=== PATIENT | male | born 1940 | race Caucasian/White ===

== ENCOUNTER 2021-02-12 04:30 | Inpatient (IN) | payer MEDICARE, BC ==
[~2021-02-12] VITALS: Ht 182.9 cm; Wt 68.0 kg
[2021-02-12] MEDS ORDERED: CHOL100040 PO (11:05)
[2021-02-12] MEDS ORDERED: ATOR10TA PO (11:05)
[2021-02-12] MEDS ORDERED: DONE10TA44 PO (11:05)
[2021-02-12] MEDS ORDERED: ESCI10TA PO (11:05)
[2021-02-12] MEDS ORDERED: SULF1TAB48 PO (11:05)
[2021-02-12] MEDS ORDERED: MEMA5TAB PO (11:05)
[2021-02-12] MEDS ORDERED: clonazePAM 0.5 MG TABLET PO SCH (11:30)
[2021-02-12] MEDS ORDERED: MAG HYDROX/AL HYDROX/SIMETH 30 ML UDC PO PRN (11:30)
[2021-02-12] MEDS ORDERED: ACETAMINOPHEN 325 MG TABLET PO PRN (11:30)
[2021-02-12] MEDS ORDERED: MAGNESIUM HYDROXIDE 30 ML UDC PO PRN (11:30)
[2021-02-12] MEDS ORDERED: BLOOD SUGAR DIAGNOSTIC 1 EACH STRIP IN ONE (11:30)
--- NOTE | 2021-02-12 11:30 | NUR ---
GPS/RN RECEIVED PT ON 5149 FOR GD FROM ER OF [facility]. ORIGINALLY FROM [facility]. ADMITTING ORDERS FROM DR BENNETT RECEIVED AND CARRIED OUT. ON FACE TO FACE ASSESSMENT NO SI OR HI VERBALIZED. PT'S NOTIFIED OF ADMISSION. PT IS AGGRESSIVE, REFUSED TO SIGN ADMITTING PAPERWORK, UNCOOPERATIVE, REFUSED TO PROVIDE ANY MEDICAL HX, TO ASSESS SKIN AND TO LET NURSE TO MAKE PICTURES.
[2021-02-12] MEDS ORDERED: QUETIAPINE FUMARATE 25 MG TABLET PO SCH ×2 (12:30→17:00)
--- NOTE | 2021-02-12 12:35 | NUR ---
GPS/RN NATHAN BRUSHER AND SHEARER MADE AWARE OF ADMISSION
[2021-02-12 13:30] VITALS: BP 130/74
--- NOTE | 2021-02-12 13:59 | NUR ---
GPS RN NOTE: DR ORELLANA NOTIFIED OF ADMISSION AND TO RECON HOME MEDS. PATIENT IN THE ROOM UNCOOPERATIVE REFUSED MRSA, REFUSED VSS, REFUSED SKIN ASSESSMENT WILL INDORSE TO INCOMING SHIFT NURSE FOR CONTINUATION OF CARE.
[2021-02-12] MEDS: QUETIAPINE FUMARATE 25 MG TABLET PO SCH ×2 (14:18→16:30)
[2021-02-12] MEDS: ESCITALOPRAM OXALATE (10 MG) 10 MG TABLET PO SCH (14:18)
[2021-02-12 16:00] VITALS: BP 136/83
--- NOTE | 2021-02-12 18:23 | NUR ---
GPS RN NOTE: PER PHARMACY DR ORELLANA NEW EKG ORDER .
[2021-02-12] MEDS: ATORVASTATIN 10 MG TABLET PO SCH (18:30)
[2021-02-12 20:21] VITALS: BP 131/52
[2021-02-12] MEDS: DONEPEZIL 5 MG TABLET PO SCH (21:23)
[2021-02-12] MEDS: TEMAZEPAM 7.5 MG CAPSULE PO PRN (21:29)
--- NOTE | 2021-02-12 21:30 | NUR ---
GPS RN NOTES: RESTORIL 7.5MG/1CAP GIVEN PO PRN ORDERED AT 2130. WILL CONTINUE TO MONITOR.
--- NOTE | 2021-02-13 04:32 | NUR ---
GPS RN NOTES: EPIC/NATHAN INFORMED OF PATIENT ABNORMAL EKG RESULT
[2021-02-13 08:00] VITALS: BP 128/68
[2021-02-13] MEDS: MEMANTINE HCL 5 MG TABLET PO SCH ×3 (08:41→17:00)
[2021-02-13] MEDS: SULFAMETH/TRIMETH 800/160 MG 1 UDTAB TABLET PO SCH ×3 (08:41→17:00)
[2021-02-13] MEDS: ESCITALOPRAM OXALATE (10 MG) 10 MG TABLET PO SCH ×2 (08:41→09:00)
[2021-02-13] MEDS: QUETIAPINE FUMARATE 25 MG TABLET PO SCH ×3 (08:41→17:00)
[2021-02-13] MEDS: CHOLECALCIFEROL 1,000 UNIT TABLET (VIT D3) PO SCH ×2 (08:41→09:00)
[2021-02-13 08:53] LABS: CHOLESTEROL 153 mg/dL (<200); HDL CHOLESTEROL 67 mg/dL (40-60); LDL 84 mg/dL (0-99); TRIGLYCERIDES 52 mg/dL (30-150)
[2021-02-13 08:56] LABS: BILIRUBIN,TOTAL 0.9 mg/dL (0.2-1.0); CALCIUM, SERUM 8.7 mg/dL (8.5-10.1); CREATININE 1.1 mg/dL (0.6-1.3); POTASSIUM 3.7 mmol/L (3.5-5.1); TOTAL PROTEIN, SERUM 7.5 g/dL (6.4-8.2)
--- NOTE | 2021-02-13 11:55 | NUR ---
GPS/RN PT REFUSED AM MEDS, OFFERED X3. PT REFUSED MEDS FR0M ZAKIA RN WELL. PT REFUSED PT EVALUATION TODAY. PT IS VERBALLY AGGRESSIVE AND NOT REDIRECTABLE , REFUSED CARE FROM BRISEIDA CURTIS AND TRY TO THROW WATER PITCHER TOWARD HER. DR BENNETT IS IN THE UNIT AND MADE AWARE OF PT'S NOT COMPLIANCE.
[2021-02-13] MEDS: ATORVASTATIN 10 MG TABLET PO SCH (18:00)
[2021-02-13] MEDS: DONEPEZIL 5 MG TABLET PO SCH (22:00)
--- NOTE | 2021-02-13 22:07 | NUR ---
GPS RN NOTES: PATIENT REFUSED 22:00 ARICEPT 10MG PO ORDERED. PATIENT IS AGITATED AND AGGRESSIVE, YELLING AT STAFF "GET OUT OF MY ROOM AND DON'T COME BACK", REFUSING REDIRECTION. WILL CONTINUE TO MONITOR FOR SAFETY, MOOD AND BEHAVIOR.
--- NOTE | 2021-02-14 06:05 | NUR ---
GPS RN NOTES: PATIENT REFUSED WEEKLY SKIN ASSESSMENT.
[2021-02-14 08:00] VITALS: BP 113/77
[2021-02-14] MEDS: MEMANTINE HCL 5 MG TABLET PO SCH ×2 (08:05→17:02)
[2021-02-14] MEDS: CHOLECALCIFEROL 1,000 UNIT TABLET (VIT D3) PO SCH (08:05)
[2021-02-14] MEDS: SULFAMETH/TRIMETH 800/160 MG 1 UDTAB TABLET PO SCH ×2 (08:05→17:02)
[2021-02-14] MEDS: ESCITALOPRAM OXALATE (10 MG) 10 MG TABLET PO SCH (08:05)
[2021-02-14] MEDS: QUETIAPINE FUMARATE 25 MG TABLET PO SCH ×3 (08:05→20:18)
--- NOTE | 2021-02-14 08:06 | NUR ---
RN NOTE: MEDICATION REFUSAL PT REFUSED ALL AM MEDICATIONS. ATTEMPTED TO EDUCATE PT RE IMPORTANCE OF MEDICATION COMPLIANCE. PT CONT'D TO REFUSE X 3. PT IS EASILY AGITATED, IRRITABLE AND ANGERED. YELLING CUSS WORDS AT STAFF. UNABLE TO BE REDIRECTED.
[2021-02-14] MEDS ORDERED: OLANZAPINE 10 MG VIAL IM STA (08:25)
[2021-02-14] MEDS ORDERED: LORAZEPAM INJ 2 MG/ML VIAL IM STA (08:25)
--- NOTE | 2021-02-14 08:40 | NUR ---
RN NOTE: EMERGENCY IM PT ATTEMPTING TO HIT STAFF. SWUNG AT PUBLICATION DESIGNER. VERBALLY AGGRESSIVE AND ABUSIVE. CURSING AND YELLING IN HALLWAY. UNABLE TO BE REDIRECTED AND REORIENTED. PT IS CONFUSED AND DELUSIONAL. "I KNOW THE PRESIDENT OF [facility] AND I'M GOING TO GET YOU FIRED". OFFERED PO MEDICATION. PT REFUSED. CALL TO DR. BENNETT AND TELEPHONE ORDER OF ZYPREXA 5MG AND ATIVAN 1MG IM ADMINISTERED TO RIGHT DELTOID
[2021-02-14 16:00] VITALS: BP 120/60
[2021-02-14] MEDS: ATORVASTATIN 10 MG TABLET PO SCH (17:03)
[2021-02-14 20:00] VITALS: BP 116/63
[2021-02-14] MEDS: DONEPEZIL 5 MG TABLET PO SCH (21:46)
[2021-02-14] MEDS: TEMAZEPAM 7.5 MG CAPSULE PO PRN (21:46)
--- NOTE | 2021-02-15 07:03 | NUR ---
GPS RN CLOSING NOTES: PATIENT IS SLEEPING COMFORTABLY IN BED. PATIENT HAS NO S/S OF DISTRESS. RESPIRATION EVEN AND UNLABORED WITH EQUAL RISE AND FALL OF THE CHEST, ON ROOM AIR. BED IN LOWEST POSITION AND LOCKED, SIDE RAILS UP X2. BED ALARM ON FOR SAFETY. ALL PATIENT CARE NEEDS HAVE BEEN MET ANTICIPATED. WILL CONTINUE TO MONITOR AND ENDORSE TO AM SHIFT.
[2021-02-15 08:00] VITALS: BP 103/63
[2021-02-15] MEDS: SULFAMETH/TRIMETH 800/160 MG 1 UDTAB TABLET PO SCH ×2 (08:55→17:09)
[2021-02-15] MEDS: ESCITALOPRAM OXALATE (10 MG) 10 MG TABLET PO SCH (08:55)
[2021-02-15] MEDS: CHOLECALCIFEROL 1,000 UNIT TABLET (VIT D3) PO SCH (08:55)
[2021-02-15] MEDS: MEMANTINE HCL 5 MG TABLET PO SCH ×2 (08:55→17:11)
[2021-02-15] MEDS: QUETIAPINE FUMARATE 25 MG TABLET PO SCH ×3 (08:55→17:11)
[2021-02-15 16:00] VITALS: BP 101/64
[2021-02-15] MEDS: ENSURE ENLIVE 237 ML LIQUID (VANILLA) PO SCH (17:06)
[2021-02-15] MEDS: ATORVASTATIN 10 MG TABLET PO SCH (17:11)
--- NOTE | 2021-02-15 17:40 | NUR ---
GPS RN CLOSING NOTES: PATIENT IS RESTING COMFORTABLY IN WESTON-CHAIR. PATIENT HAS NO S/S OF DISTRESS. PT IS MEDICATION COMPLIANT (CRUSHED). RESPIRATIONS EVEN AND UNLABORED WITH EQUAL RISE AND FALL OF THE CHEST, ON ROOM AIR. ALL PATIENT CARE NEEDS HAVE BEEN MET ANTICIPATED. WILL CONTINUE TO MONITOR AND ENDORSE TO AM SHIFT.
[2021-02-15 20:00] VITALS: BP 123/56
--- NOTE | 2021-02-15 20:00 | NUR ---
RN NOTES: PT. REFUSED SKIN ASSESSMENT AND PICTURS TAKEN , ENCOURAGED X3 , RISKS AND BENEFITS EXPLINED PT. STRONGLY REFUSED , BUT PT. VISUALLY NOTED WITH SKIN DISCOLORATIONS ON BOTH ARMS AND PT. BEHAVIOR VERY UNCOOPERTIVE ,, ANXIOUS , EASILY AGITATED .
[2021-02-15] MEDS: DONEPEZIL 5 MG TABLET PO SCH (21:15)
[2021-02-16 08:00] VITALS: BP 104/58
[2021-02-16] MEDS: SULFAMETH/TRIMETH 800/160 MG 1 UDTAB TABLET PO SCH ×2 (08:52→17:20)
[2021-02-16] MEDS: MEMANTINE HCL 5 MG TABLET PO SCH ×2 (08:52→17:20)
[2021-02-16] MEDS: QUETIAPINE FUMARATE 25 MG TABLET PO SCH ×3 (08:52→17:20)
[2021-02-16] MEDS: ESCITALOPRAM OXALATE (10 MG) 10 MG TABLET PO SCH (08:52)
[2021-02-16] MEDS: CHOLECALCIFEROL 1,000 UNIT TABLET (VIT D3) PO SCH (08:52)
[2021-02-16] MEDS: ENSURE ENLIVE 237 ML LIQUID (VANILLA) PO SCH ×2 (08:52→17:21)
[2021-02-16] MEDS: Z GUARD REMEDY 2 OZ OINT TP SCH (08:53)
--- NOTE | 2021-02-16 14:47 | NUR ---
Initial Discharge Plan Pt will be D/C to his prior living arrangement, [facility] ([address] [place] [address]; ) or SW will seek alternative placement. SW will work with the pt and the MD regarding appropriate D/C planning. SW will form a safe and proper D/C plan.
--- NOTE | 2021-02-16 14:47 | NUR ---
D/C planning SW contacted [facility] ([address] [place] [address]; ) and spoke to Will. COURTNEY was notified that the pt is able to return to the facility at the time of D/C. COURTNEY was instructed to contact the facility prior to D/C to arrange transportation provided by the facility. COURTNEY was provided with fax number to send clinicals to the facility (fax: [phone]).
--- NOTE | 2021-02-16 14:49 | NUR ---
Point of Contact SW contacted pt's , Elina Moraes, /work: [phone]. SW called [phone] and the number was disconnected. SW called [phone] was unable to leave a voicemail but sent a text notification for callback. SW will continue to F/U to contact pt's /family.
[2021-02-16 16:00] VITALS: BP 98/60
[2021-02-16] MEDS: ATORVASTATIN 10 MG TABLET PO SCH (17:24)
[2021-02-16 20:00] VITALS: BP 101/52
[2021-02-16] MEDS: DONEPEZIL 5 MG TABLET PO SCH (22:22)
--- NOTE | 2021-02-17 06:33 | NUR ---
RN CLOSING NOTE PATIENT SLEPT THROUGH THE NIGHT. PT WAS MED COMPLIANT, NO AGGRESSIVE BEHAVIOR OBSERVED DURING CARE, NO ATTEMPTS TO GET OUT OF BED. PT STABLE ON RA, NO S/S OF DISTRESS OR SOB NOTED, BREATHING EVEN AND UNLABORED. PATIENT DENIES SI/HI AT THIS TIME. MEDICATIONS GIVEN ORDERED, PT NEEDS MET THROUGHOUT SHIFT. SAFETY MEASURES IN PLACE: BED LOCKED IN LOW POSITION, SIDE RAILS UP X 2, BED ALARM ON, Q15 MIN CHECKS FOR SAFETY AND BEHAVIOR. VISITED PT LAST NIGHT AND STATED SHE WANTS TO SPEAK TO WHIZZER HAND AND MD. WILL ENDORSE TO DAY SHIFT NURSE FOR CONTINUITY OF CARE
[2021-02-17 08:00] VITALS: BP 138/75
[2021-02-17] MEDS: SULFAMETH/TRIMETH 800/160 MG 1 UDTAB TABLET PO SCH ×2 (08:20→16:24)
[2021-02-17] MEDS: ESCITALOPRAM OXALATE (10 MG) 10 MG TABLET PO SCH (08:20)
[2021-02-17] MEDS: MEMANTINE HCL 5 MG TABLET PO SCH ×2 (08:20→16:24)
[2021-02-17] MEDS: QUETIAPINE FUMARATE 25 MG TABLET PO SCH ×3 (08:20→16:24)
[2021-02-17] MEDS: Z GUARD REMEDY 2 OZ OINT TP SCH (08:21)
[2021-02-17] MEDS: ENSURE ENLIVE 237 ML LIQUID (VANILLA) PO SCH ×2 (08:21→16:24)
[2021-02-17] MEDS: CHOLECALCIFEROL 1,000 UNIT TABLET (VIT D3) PO SCH (08:25)
--- NOTE | 2021-02-17 12:30 | NUR ---
Probable Cause Hearing Pt's 5250 hold is upheld on the grounds of gravely disabled.
[2021-02-17 16:00] VITALS: BP 138/94
[2021-02-17] MEDS: ATORVASTATIN 10 MG TABLET PO SCH (17:08)
[2021-02-17 21:03] VITALS: BP 107/64
[2021-02-17] MEDS: DONEPEZIL 5 MG TABLET PO SCH (21:32)
[2021-02-18 08:00] VITALS: BP 126/71
[2021-02-18] MEDS: SULFAMETH/TRIMETH 800/160 MG 1 UDTAB TABLET PO SCH (08:28)
[2021-02-18] MEDS: MEMANTINE HCL 5 MG TABLET PO SCH ×2 (08:28→16:30)
[2021-02-18] MEDS: ESCITALOPRAM OXALATE (10 MG) 10 MG TABLET PO SCH (08:28)
[2021-02-18] MEDS: Z GUARD REMEDY 2 OZ OINT TP SCH (08:29)
[2021-02-18] MEDS: CHOLECALCIFEROL 1,000 UNIT TABLET (VIT D3) PO SCH (08:29)
[2021-02-18] MEDS: QUETIAPINE FUMARATE 25 MG TABLET PO SCH ×3 (08:29→16:30)
[2021-02-18] MEDS: ENSURE ENLIVE 237 ML LIQUID (VANILLA) PO SCH ×2 (08:36→17:31)
[2021-02-18 16:00] VITALS: BP 121/69
[2021-02-18] MEDS: ATORVASTATIN 10 MG TABLET PO SCH (17:01)
--- NOTE | 2021-02-18 17:58 | NUR ---
GPS RN NOTES PATIENT IN CHERO CHAIR WATCHING TV, QUITE
[2021-02-18] MEDS: clonazePAM 0.5 MG TABLET PO PRN (19:36)
--- NOTE | 2021-02-18 19:37 | NUR ---
RN NOTES: ANXIETY PT. NOTED VERY ANXIOUS , RESTLESS , NOT FOLLOWING ANY REDIRECTIONS , BANGING ON GERICHAIR TABLE, KLONOPIN 0.25 MG GIVEN WILL CONTINUE TO MONITOR.
[2021-02-18 20:50] VITALS: BP 110/67
[2021-02-18] MEDS: DONEPEZIL 5 MG TABLET PO SCH (21:25)
[2021-02-19 04:57] LABS: BILIRUBIN,URINE NEGATIVE (NEGATIVE); COLOR,URINE YELLOW (YELLOW); LEUKOCYTE ESTERASE ,URINE NEGATIVE (NEGATIVE); NITRITE, URINE NEGATIVE (NEGATIVE); PROTEIN,URINE NEGATIVE (NEGATIVE); UGLUCOSE NEGATIVE (NEGATIVE); UROBILINOGEN,URINE 0.2 EU/dL (0.2)
[2021-02-19 05:13] LABS: RBC,URINE 0-2 /HPF (0-2); WBC,URINE 0-2 /HPF (0-3)
[2021-02-19 05:14] LABS: BACTERIA,URINE Many /HPF (None Seen); HYALINE CASTS, URINE Few /LPF (None Seen); MUCUS,URINE Few /LPF (None Seen); SQUAMOUS EPITHELIAL CELL,UR Few /HPF (None Seen)
[2021-02-19 06:48] LABS: CARBON DIOXIDE 28 mmol/L (21-32); CHLORIDE 106 mmol/L (98-107); CREATININE 1.4 mg/dL (0.6-1.3); GLUCOSE 105 mg/dL (74-106); POTASSIUM 4.5 mmol/L (3.5-5.1); SODIUM SERUM 141 mmol/L (136-145); UREA NITROGEN, BLOOD 45 mg/dL (7-18)
[2021-02-19 08:00] VITALS: BP 123/53
[2021-02-19] MEDS: CHOLECALCIFEROL 1,000 UNIT TABLET (VIT D3) PO SCH (08:53)
[2021-02-19] MEDS: ESCITALOPRAM OXALATE (10 MG) 10 MG TABLET PO SCH (08:53)
[2021-02-19] MEDS: Z GUARD REMEDY 2 OZ OINT TP SCH ×2 (08:53→08:54)
[2021-02-19] MEDS: QUETIAPINE FUMARATE 25 MG TABLET PO SCH ×3 (08:53→16:47)
[2021-02-19] MEDS: MEMANTINE HCL 5 MG TABLET PO SCH ×2 (08:53→16:48)
[2021-02-19] MEDS: ENSURE ENLIVE 237 ML LIQUID (VANILLA) PO SCH ×2 (08:57→16:46)
[2021-02-19 16:00] VITALS: BP 105/64
[2021-02-19] MEDS: ATORVASTATIN 10 MG TABLET PO SCH (16:47)
[2021-02-19 20:40] VITALS: BP 135/75
[2021-02-19] MEDS: TEMAZEPAM 7.5 MG CAPSULE PO PRN (20:51)
[2021-02-19] MEDS: DONEPEZIL 5 MG TABLET PO SCH (20:51)
[2021-02-20 08:00] VITALS: BP 120/88
[2021-02-20] MEDS ORDERED: ESCITALOPRAM OXALATE (10 MG) 10 MG TABLET PO SCH (09:00)
[2021-02-20] MEDS: CHOLECALCIFEROL 1,000 UNIT TABLET (VIT D3) PO SCH (09:01)
[2021-02-20] MEDS: QUETIAPINE FUMARATE 25 MG TABLET PO SCH ×3 (09:01→16:18)
[2021-02-20] MEDS: MEMANTINE HCL 5 MG TABLET PO SCH ×2 (09:02→16:18)
[2021-02-20] MEDS: ENSURE ENLIVE 237 ML LIQUID (VANILLA) PO SCH ×2 (09:04→16:20)
[2021-02-20] MEDS: Z GUARD REMEDY 2 OZ OINT TP SCH ×2 (09:09)
--- NOTE | 2021-02-20 14:08 | NUR ---
GPS RN NOTE: PATIENT UNCOOPERATIVE WITH IMAGING NURSE. REFUSED .
[2021-02-20 16:00] VITALS: BP 125/58
[2021-02-20] MEDS: ATORVASTATIN 10 MG TABLET PO SCH (17:14)
[2021-02-20 20:00] VITALS: BP 121/80
[2021-02-20] MEDS: clonazePAM 0.5 MG TABLET PO PRN (20:05)
--- NOTE | 2021-02-20 20:05 | NUR ---
GPS RN NOTE: ANXIETY Patient was feeling anxious and was given PRN Klonopin 0.25mg PO. Will continue to monitor the patient.
[2021-02-20 20:42] VITALS: BP 121/80
--- NOTE | 2021-02-20 21:12 | NUR ---
GPS RN NOTE Patient refused AM labs. Labs will be collected tomorrow.
[2021-02-20] MEDS: DONEPEZIL 5 MG TABLET PO SCH (21:52)
[2021-02-21 08:00] VITALS: BP 134/87
[2021-02-21] MEDS: ESCITALOPRAM OXALATE (10 MG) 10 MG TABLET PO SCH (08:59)
[2021-02-21] MEDS: ENSURE ENLIVE 237 ML LIQUID (VANILLA) PO SCH ×2 (08:59→16:34)
[2021-02-21] MEDS: MEMANTINE HCL 5 MG TABLET PO SCH ×2 (08:59→16:34)
[2021-02-21] MEDS: QUETIAPINE FUMARATE 25 MG TABLET PO SCH ×3 (08:59→16:34)
[2021-02-21] MEDS: CHOLECALCIFEROL 1,000 UNIT TABLET (VIT D3) PO SCH (09:00)
[2021-02-21] MEDS: Z GUARD REMEDY 2 OZ OINT TP SCH ×2 (09:00)
--- NOTE | 2021-02-21 12:55 | NUR ---
gps client project coordinator: psych f/u dr. piedra here and made aware re: refusal meds today.
--- NOTE | 2021-02-21 14:17 | NUR ---
Family Contact: COURTNEY received call from pt.'s , Yola Moraes [phone] stating that she would like to speak to the psychiatrist. SW notified Dr. Bernard. stated she is worried that [facility] ([address] [place] [address]; ) will not take pt. back due to behavioral issues. SW informed her that [facility] has already stated pt. can return. COURTNEY educated Mary Ann that Dementia is a progressive illness and memory care facilities like [facility] are equipped to care for pt. with behavioral. Mary Ann asked about UA results. COURTNEY told Mary Ann she would be transferred to nursing for that information. Mary Ann stated she would be visiting pt. luis alberto and will gather that information from nursing at this time Noted.
[2021-02-21 15:50] LABS: BASOPHILS % (AUTO) 0.3 % (0.0-2.0); EOSINOPHILS % (AUTO) 0.4 % (0.0-6.0); HEMATOCRIT 37 % (39-51); HEMOGLOBIN 12.4 g/dL (13.5-17.5); LYMPHOCYTES # (AUTO) 1.4 K/uL (0.8-4.8); LYMPHOCYTES % (AUTO) 28.3 % (20.0-44.0); MEAN CORPUSCULAR HGB CONC 34 g/dl (31.0-36.0); MEAN CORPUSCULAR VOLUME 93 fL (80-96); MONOCYTES # (AUTO) 0.4 K/uL (0.1-1.30); MONOCYTES % (AUTO) 7.3 % (2.0-12.0); NEUTROPHILS # (AUTO) 3.1 K/uL (1.8-8.9); NEUTROPHILS % (AUTO) 63.7 % (43.0-81.0); PLATELET COUNT (AUTO) 168 K/uL (150-450); RED BLOOD CELL COUNT(AUTO) 3.94 MIL/uL (4.5-6.0); WHITE BLOOD COUNT (AUTO) 4.8 K/uL (4.3-11.0)
[2021-02-21 16:00] VITALS: BP 129/55
[2021-02-21 16:04] LABS: ALBUMIN 3.6 g/dL (3.4-5.0); BILIRUBIN,TOTAL 1.3 mg/dL (0.2-1.0); CALCIUM, SERUM 8.9 mg/dL (8.5-10.1); CREATININE 1.3 mg/dL (0.6-1.3); MAGNESIUM 2.2 mg/dL (1.8-2.4); PHOSPHORUS 3.4 mg/dL (2.5-4.9); POTASSIUM 4.3 mmol/L (3.5-5.1); TOTAL PROTEIN, SERUM 7.1 g/dL (6.4-8.2)
--- NOTE | 2021-02-21 16:35 | NUR ---
gps conservation scientist: notes pt remains non-compliant with medications. easily agitated and verbally abusive despite teaching provided. reality orientation provided prn.
[2021-02-21] MEDS: ATORVASTATIN 10 MG TABLET PO SCH (17:04)
[2021-02-21] MEDS: clonazePAM 0.5 MG TABLET PO PRN (19:50)
--- NOTE | 2021-02-21 19:50 | NUR ---
GPS RN NOTE PT BECOME VERY ANXIOUS AND LOUD, IS VISITING AND AT BED SIDE. KLONOPIN 0.25MG PO GIVEN. CONTINUE TO MONITOR HIM.
[2021-02-21 20:00] VITALS: BP 102/65
--- NOTE | 2021-02-21 20:50 | NUR ---
GPS RN NOTE ANXIETY SUBSIDED. PT REMAIN AWAKE
[2021-02-21] MEDS: DONEPEZIL 5 MG TABLET PO SCH (21:32)
[2021-02-21] MEDS: TEMAZEPAM 7.5 MG CAPSULE PO PRN (21:32)
--- NOTE | 2021-02-21 21:32 | NUR ---
GPS RN NOTE PT UNABLE TO SLEEP, RESTORIL 7.5 MG PO GIVEN. NO DISTRESS NOTED.
--- NOTE | 2021-02-21 22:32 | NUR ---
GPS RN NOTE PT FALL BACK TO SLEEP.
[2021-02-22 08:00] VITALS: BP 149/82
[2021-02-22] MEDS: ENSURE ENLIVE 237 ML LIQUID (VANILLA) PO SCH ×2 (08:41→17:00)
[2021-02-22] MEDS: MEMANTINE HCL 5 MG TABLET PO SCH ×2 (08:42→17:00)
[2021-02-22] MEDS: CHOLECALCIFEROL 1,000 UNIT TABLET (VIT D3) PO SCH (08:42)
[2021-02-22] MEDS: QUETIAPINE FUMARATE 25 MG TABLET PO SCH ×3 (08:42→17:00)
[2021-02-22] MEDS: ESCITALOPRAM OXALATE (10 MG) 10 MG TABLET PO SCH (08:42)
[2021-02-22] MEDS: Z GUARD REMEDY 2 OZ OINT TP SCH ×2 (08:42)
--- NOTE | 2021-02-22 09:00 | NUR ---
RN NOTE-PT IRRITABLE AGITATED, REFUSING ALL INTERACTION CARE AND MEDS. PT SWUNG AT RN GESTURING WILDLY 'GET OUT GET OUT GET OUT' LABILE MONITOR FOR SAFETY
[2021-02-22 10:07] LABS: *SPE A/G RATIO 1.2 (0.7-1.7); *SPE ALPHA-1-GLOBULIN 0.2 g/dL (0.0-0.4); *SPE ALPHA-2-GLOBULIN 0.7 g/dL (0.4-1.0); *SPE BETA GLOBULIN 0.9 g/dL (0.7-1.3); *SPE M-SPIKE Not Observed g/dL (Not Observed)
--- NOTE | 2021-02-22 15:30 | NUR ---
RN NOTE- PT YELLING AGITATED SCREAMING AND NOT DIRECTABLE. DR BENNETT NOTIFIED. ZYPREXA 5MG IM AND ATIVAN 1 MG ORDERED AND ADMINISTERED W STAFF ASSIST
[2021-02-22] MEDS ORDERED: OLANZAPINE 10 MG VIAL IM STA (15:33)
[2021-02-22] MEDS ORDERED: LORAZEPAM INJ 2 MG/ML VIAL IM STA (15:33)
[2021-02-22 16:00] VITALS: BP 128/76
[2021-02-22] MEDS: ATORVASTATIN 10 MG TABLET PO SCH (17:05)
[2021-02-22 20:00] VITALS: BP 100/60
[2021-02-22] MEDS: DONEPEZIL 5 MG TABLET PO SCH (22:11)
[2021-02-23 08:00] VITALS: BP 136/72
[2021-02-23] MEDS: ENSURE ENLIVE 237 ML LIQUID (VANILLA) PO SCH ×2 (09:03→17:10)
[2021-02-23] MEDS: Z GUARD REMEDY 2 OZ OINT TP SCH (09:04)
[2021-02-23] MEDS: ESCITALOPRAM OXALATE (10 MG) 10 MG TABLET PO SCH (09:05)
[2021-02-23] MEDS: CHOLECALCIFEROL 1,000 UNIT TABLET (VIT D3) PO SCH (09:05)
[2021-02-23] MEDS: MEMANTINE HCL 5 MG TABLET PO SCH ×2 (09:05→17:14)
[2021-02-23] MEDS: QUETIAPINE FUMARATE 25 MG TABLET PO SCH ×3 (09:07→17:14)
[2021-02-23 16:00] VITALS: BP 139/57
--- NOTE | 2021-02-23 16:59 | NUR ---
RN-CO: NOTIFIED DR BENNETT REGARDING LA OROZCO TOO 02/24/21 @ 1600.
[2021-02-23] MEDS: ATORVASTATIN 10 MG TABLET PO SCH (17:16)
[2021-02-23 20:36] VITALS: BP 107/66
[2021-02-23] MEDS: DONEPEZIL 5 MG TABLET PO SCH (21:07)
[2021-02-24 08:00] VITALS: BP 117/85
[2021-02-24] MEDS: MEMANTINE HCL 5 MG TABLET PO SCH ×3 (08:47→16:59)
[2021-02-24] MEDS: QUETIAPINE FUMARATE 25 MG TABLET PO SCH ×4 (08:48→17:00)
[2021-02-24] MEDS: CHOLECALCIFEROL 1,000 UNIT TABLET (VIT D3) PO SCH ×2 (08:48→09:00)
[2021-02-24] MEDS: ENSURE ENLIVE 237 ML LIQUID (VANILLA) PO SCH ×3 (08:48→17:20)
[2021-02-24] MEDS: ESCITALOPRAM OXALATE (10 MG) 10 MG TABLET PO SCH ×2 (08:48→09:00)
[2021-02-24] MEDS: Z GUARD REMEDY 2 OZ OINT TP SCH (08:49)
--- NOTE | 2021-02-24 09:10 | NUR ---
RN-NOTES PATIENT REFUSED ALL AM MEDICATIONS DESPITE EXPLANATIONS RISK AND BENEFITS, STATED" I'M TAKING ANY MEDICATIONS TODAY,ADIOS,YOU CAN GO OUT NOW ". OFFERED X3
[2021-02-24] MEDS ORDERED: HALOPERIDOL LACTATE INJ 5 MG/ML VIAL IM SCH (12:30)
[2021-02-24] MEDS ORDERED: HALOPERIDOL LACTATE INJ 5 MG/ML VIAL IM PRN (15:00)
[2021-02-24 16:00] VITALS: BP 104/72
[2021-02-24] MEDS: ATORVASTATIN 10 MG TABLET PO SCH (17:42)
[2021-02-24 20:00] VITALS: BP 94/54
[2021-02-24 21:06] LABS: ALBUMIN 3.6 g/dL (3.4-5.0); BILIRUBIN,DIRECT 0.3 mg/dL (0.0-0.2); TOTAL PROTEIN, SERUM 7.1 g/dL (6.4-8.2)
[2021-02-24] MEDS: DONEPEZIL 5 MG TABLET PO SCH (21:48)
[2021-02-25 08:00] VITALS: BP 117/73
[2021-02-25] MEDS: ESCITALOPRAM OXALATE (10 MG) 10 MG TABLET PO SCH (09:18)
[2021-02-25] MEDS: ENSURE ENLIVE 237 ML LIQUID (VANILLA) PO SCH ×2 (09:18→17:00)
[2021-02-25] MEDS: QUETIAPINE FUMARATE 25 MG TABLET PO SCH ×2 (09:18→18:00)
[2021-02-25] MEDS: Z GUARD REMEDY 2 OZ OINT TP SCH (09:18)
[2021-02-25] MEDS: MEMANTINE HCL 5 MG TABLET PO SCH ×2 (09:19→18:00)
[2021-02-25] MEDS: CHOLECALCIFEROL 1,000 UNIT TABLET (VIT D3) PO SCH (09:19)
[2021-02-25 16:00] VITALS: BP 100/63
[2021-02-25] MEDS: ATORVASTATIN 10 MG TABLET PO SCH (18:02)
[2021-02-25 20:17] VITALS: BP 124/59
[2021-02-25] MEDS: DONEPEZIL 5 MG TABLET PO SCH (21:50)
[2021-02-25] MEDS: TEMAZEPAM 7.5 MG CAPSULE PO PRN (21:50)
[2021-02-26] MEDS: ENSURE ENLIVE 237 ML LIQUID (VANILLA) PO SCH ×2 (07:57→17:36)
[2021-02-26 08:00] VITALS: BP 127/81
[2021-02-26] MEDS: Z GUARD REMEDY 2 OZ OINT TP SCH (08:53)
[2021-02-26] MEDS: MEMANTINE HCL 5 MG TABLET PO SCH ×2 (08:54→17:36)
[2021-02-26] MEDS: ESCITALOPRAM OXALATE (10 MG) 10 MG TABLET PO SCH (08:55)
[2021-02-26] MEDS: CHOLECALCIFEROL 1,000 UNIT TABLET (VIT D3) PO SCH (08:55)
[2021-02-26] MEDS: QUETIAPINE FUMARATE 25 MG TABLET PO SCH ×2 (08:55→17:36)
[2021-02-26 16:00] VITALS: BP 143/82
[2021-02-26] MEDS: ATORVASTATIN 10 MG TABLET PO SCH (17:38)
[2021-02-26 20:57] VITALS: BP 115/73
[2021-02-26] MEDS: DONEPEZIL 5 MG TABLET PO SCH (21:42)
[2021-02-26] MEDS: TEMAZEPAM 7.5 MG CAPSULE PO PRN (21:42)
--- NOTE | 2021-02-26 22:00 | NUR ---
GPS RN NOTE PT REFUSED SLEEPING MED, FIRST ASKED FOR IT. WILL WAIT TO SEE IF PT WANTS IT AGAIN.
--- NOTE | 2021-02-27 | NUR ---
GPS RN NOTE PT IN BED ASLEEP, NO DISTRESS NOTED.
[2021-02-27] MEDS: TEMAZEPAM 7.5 MG CAPSULE PO PRN ×2 (03:57→21:55)
[2021-02-27 08:00] VITALS: BP 126/74
[2021-02-27] MEDS: QUETIAPINE FUMARATE 100 MG TABLET PO SCH ×2 (08:45→17:45)
[2021-02-27] MEDS: CHOLECALCIFEROL 1,000 UNIT TABLET (VIT D3) PO SCH (08:45)
[2021-02-27] MEDS: MEMANTINE HCL 5 MG TABLET PO SCH ×2 (08:45→17:44)
[2021-02-27] MEDS: ESCITALOPRAM OXALATE (10 MG) 10 MG TABLET PO SCH (08:45)
[2021-02-27] MEDS: ENSURE ENLIVE 237 ML LIQUID (VANILLA) PO SCH ×2 (08:46→17:00)
[2021-02-27] MEDS: Z GUARD REMEDY 2 OZ OINT TP SCH (08:46)
[2021-02-27 16:00] VITALS: BP 102/69
[2021-02-27] MEDS: ATORVASTATIN 10 MG TABLET PO SCH (17:45)
[2021-02-27 20:00] VITALS: BP 127/58
[2021-02-27] MEDS: DONEPEZIL 5 MG TABLET PO SCH (21:37)
--- NOTE | 2021-02-27 21:56 | NUR ---
GPS-RN NOTES: INSOMNIA PATIENT C/O INABILITY TO SLEEP. PRN RESTORIL 7.5MG PO GIVEN. WILL CONTINUE TO MONITOR.
--- NOTE | 2021-02-28 07:30 | NUR ---
GPS RN AM NOTES PATIENT WALKED TO ACTIVITY ROOM, STATED HE IS HUNGRY. EARLIER, PER LEATHER FINISHER, PT THREW AWAY HIS TRAY. CALM AND COOPERATIVE AT THIS TIME. EASILY AGITATED. COMPLIANT WITH HIS MEDICATIONS
[2021-02-28 08:00] VITALS: BP 117/88
[2021-02-28] MEDS: MEMANTINE HCL 5 MG TABLET PO SCH ×2 (08:30→16:03)
[2021-02-28] MEDS: Z GUARD REMEDY 2 OZ OINT TP SCH (08:30)
[2021-02-28] MEDS: ESCITALOPRAM OXALATE (10 MG) 10 MG TABLET PO SCH (08:30)
[2021-02-28] MEDS: CHOLECALCIFEROL 1,000 UNIT TABLET (VIT D3) PO SCH (08:30)
[2021-02-28] MEDS: QUETIAPINE FUMARATE 100 MG TABLET PO SCH ×2 (08:30→16:04)
[2021-02-28] MEDS: ENSURE ENLIVE 237 ML LIQUID (VANILLA) PO SCH ×2 (08:34→16:03)
[2021-02-28 16:00] VITALS: BP 112/62
[2021-02-28] MEDS: ATORVASTATIN 10 MG TABLET PO SCH (16:18)
[2021-02-28 19:58] VITALS: BP 132/90
[2021-02-28 20:06] VITALS: BP 132/90
[2021-02-28] MEDS: DONEPEZIL 5 MG TABLET PO SCH (21:43)
[2021-02-28] MEDS: TEMAZEPAM 7.5 MG CAPSULE PO PRN (22:05)
--- NOTE | 2021-02-28 22:06 | NUR ---
GPS-RN NOTES: INSOMNIA PATIENT C/O INABILITY TO SLEEP. PRN RESTORIL 7.5MG PO GIVEN. WILL CONTINUE TO MONITOR.
[2021-03-01 07:53] LABS: CALCIUM, SERUM 8.5 mg/dL (8.5-10.1); POTASSIUM 3.9 mmol/L (3.5-5.1)
[2021-03-01 08:00] VITALS: BP 142/86
[2021-03-01] MEDS: ENSURE ENLIVE 237 ML LIQUID (VANILLA) PO SCH ×2 (08:30→16:37)
[2021-03-01] MEDS: CHOLECALCIFEROL 1,000 UNIT TABLET (VIT D3) PO SCH (08:33)
[2021-03-01] MEDS: MEMANTINE HCL 5 MG TABLET PO SCH ×2 (08:33→17:14)
[2021-03-01] MEDS: QUETIAPINE FUMARATE 100 MG TABLET PO SCH ×2 (08:33→17:14)
[2021-03-01] MEDS: ESCITALOPRAM OXALATE (10 MG) 10 MG TABLET PO SCH (08:34)
[2021-03-01] MEDS: Z GUARD REMEDY 2 OZ OINT TP SCH (08:45)
--- NOTE | 2021-03-01 14:23 | NUR ---
[facility]: COURTNEY spoke with Erika WASHINGTON at [facility] ([phone]) and stated that pt is welcomed back . COURTNEY faxed clinicals (F:[phone]).
--- NOTE | 2021-03-01 14:26 | NUR ---
Family Contact: SW spoke with patient's Elina ([phone]) and discussed discharge plan and discussed transportation.
--- NOTE | 2021-03-01 15:01 | NUR ---
[employer]: COURTNEY coordinated transportation on 03/03/2021 at 8AM and it cost about $75 dollars. COURTNEY contacted pt's Elina ([phone]) and she stated she would be paying for it.
--- NOTE | 2021-03-01 15:40 | NUR ---
COURTNEY Coordination of Care: Patient will follow up with (Central Services Tech) Dr. Llanos located at [address] [place] [address], [place] [address]; ([phone]) on March 05 9:30AM and will monitor and provide psychotropic medications and receptionist scheduler Kathleen will refer pt to a psychiatrist.
[2021-03-01 16:00] VITALS: BP 137/73
[2021-03-01] MEDS: ATORVASTATIN 10 MG TABLET PO SCH (17:14)
--- NOTE | 2021-03-01 19:45 | NUR ---
RN NOTE PATIENT'S AT BED SIDE, SHE BROUGHT SNACK FOR THE PATIENT & PATIENT FINISHED ALL HIS SNACK. WILL CONTINUE TO MONITOR.
[2021-03-01 20:00] VITALS: BP 99/60
[2021-03-01 20:10] VITALS: BP 99/60
[2021-03-01] MEDS: DONEPEZIL 5 MG TABLET PO SCH (21:24)
[2021-03-02 08:00] VITALS: BP 114/65
[2021-03-02] MEDS: CHOLECALCIFEROL 1,000 UNIT TABLET (VIT D3) PO SCH (08:31)
[2021-03-02] MEDS: ESCITALOPRAM OXALATE (10 MG) 10 MG TABLET PO SCH (08:31)
[2021-03-02] MEDS: MEMANTINE HCL 5 MG TABLET PO SCH ×2 (08:31→16:05)
[2021-03-02] MEDS: QUETIAPINE FUMARATE 100 MG TABLET PO SCH ×2 (08:31→16:05)
[2021-03-02] MEDS: ENSURE ENLIVE 237 ML LIQUID (VANILLA) PO SCH ×2 (08:35→17:33)
[2021-03-02] MEDS: Z GUARD REMEDY 2 OZ OINT TP SCH (10:43)
--- NOTE | 2021-03-02 11:12 | NUR ---
Court Hearing: Patient's court hearing for 9990 was today and it was upheld for GD.
[2021-03-02 16:00] VITALS: BP 108/70
[2021-03-02] MEDS: ATORVASTATIN 10 MG TABLET PO SCH (17:34)
--- NOTE | 2021-03-02 19:30 | NUR ---
GPS RN NOTE, RECEIVED PATIENT AWAKE AND IN BED, NO S/S OR COMPLAINTS OF PAIN AT THIS TIME. PATIENT IS DISPLAYING NO S/S OF APPARENT DISTRESS AT THIS TIME. PATIENT BREATHING IS UNLABORED WITH EQUAL RISE AND FALL OF THE CHEST. PATIENT IS ALERT AND ORIENTED X 2 ON ROOM AIR WITH A SPO2 93%. PATIENT IS COMPLIANT WITH MEDICATIONS, ANXIOUS AT TIMES, YELLING AT TIMES, AND IS COOPERATIVE. PATIENT DENIES SUICIDAL AND HOMICIDAL IDEATIONS AT TIME. PATIENT EDUCATED ON THE USE OF THE CALL BOATENG. PATIENT BED SIDE RAILS UP X 2 FOR SAFETY. PATIENT BED IS LOCKED, LOW, WITH BED ALARM ON. WILL CONTINUE TO MONITOR THIS PATIENT Q15 MINUTES WITH THE HELP OF STAFF TO MAINTAIN SAFETY.
[2021-03-02 20:00] VITALS: BP 146/79
[2021-03-02] MEDS: DONEPEZIL 5 MG TABLET PO SCH (21:30)
[2021-03-03 08:00] VITALS: BP 117/72
--- NOTE | 2021-03-03 08:30 | NUR ---
Patient discharged to [facility]. Transportation provided by [employer], Luli was the powder truck driver. Patients Elina ([phone]) is aware and agreeable with discharge. Patient appears to be alert and oriented x1 and agreeable of going to [place]. Med recon for Medical and Psych meds completed and sent in discharge packet. Exit care done and completed. After care instruction reviewed and provided in discharge packet. All belongings returned. Patient presents with euthymic mood and congruent affect. Pt escorted via w/c to main lobby by staff. Addendum: 03/03/21 at 1006 by FELIPE ISIDRO RN DC order received from Dr. Bernard who provided Rx . Caridad Peters NP made aware of discharge and then provided Rx. Pt refused arm pictures to be taken. Addendum: 03/03/21 at 1009 by FELIPE ISIDRO RN Pt denied SI/HI and A/V hallucinations at time of discharge.
--- NOTE | 2021-03-03 09:19 | NUR ---
Discharge Note: Patient will be discharged to [facility] [address] [place] [address];([phone]). Patient will be provided with [facility] transportation at ([phone]) at 8AM. Admin Erika at [facility] is aware and agreeable. Patients Elina ([phone]) is aware and agreeable with discharge. Patient appears to be alert and oriented x1 and agreeable of going to [place]. Patient will follow up with (Debt Collection Specialist) Dr. Llanos located at [address] [place] [address] [address], [place] [address]; ([phone]) on March 05 9:30AM and will monitor and provide psychotropic medications and college instructor Kathleen will refer pt to a psychiatrist. Patient presents with euthymic mood and congruent affect.
== END 2021-03-03 08:25 | DRG 885 ==
LOC: GPS 10:36
PROVIDERS: ADMIT Psychiatry & Neurology Psychiatry; ATTEND Nurse Practitioner Acute Care
DX: F39 Unspecified mood [affective] disorder (principal); N17.0 Acute kidney failure with tubular necrosis; N39.0 Urinary tract infection, site not specified; G93.40 Encephalopathy, unspecified; F25.9 Schizoaffective disorder, unspecified; G30.9 Alzheimer's disease, unspecified; F02.80 Dementia in other diseases classified elsewhere, unspecified severity, without behavioral disturbance, psychotic disturbance, mood disturbance, and anxiety; I10 Essential (primary) hypertension; E78.5 Hyperlipidemia, unspecified; Z91.19 Patient's noncompliance with other medical treatment and regimen; F29 Unspecified psychosis not due to a substance or known physiological condition; E78.00 Pure hypercholesterolemia, unspecified; Z91.14 Patient's other noncompliance with medication regimen
CPT/HCPCS: 36415; 76770-TC; 80048-TC; 80053-TC; 80061-TC; 80076-TC; 81001; 82550-TC; 83735-TC; 83970; 84100-TC; 84155; 84165; 85025-TC; 87086-TC; J2060; J3490